=== PATIENT | female | born 1940 | race Asian ===

== ENCOUNTER 2016-12-13 10:02 | Inpatient (IN) | payer MEDICAID, MEDICARE ==
[~2016-12-13] VITALS: Ht 149.9 cm; Wt 67.0 kg
[~2016-12-13 10:02] MED LIST: METO-323 PO
[2016-12-13] MEDS ORDERED: HTN PO (10:08)
[2016-12-13 10:54] LABS: BASOPHILS # (AUTO) 0.01 K/uL (0.00-0.20); BASOPHILS % (AUTO) 0.2 % (0.0-2.0); EOSINOPHILS # (AUTO) 0.06 K/uL (0.00-0.70); EOSINOPHILS % (AUTO) 1.02 % (1.0-6.0); HEMATOCRIT 40.7 % (36-46); HEMOGLOBIN 13.5 g/dL (12.0-16.0); LYMPHOCYTES # (AUTO) 1.7 K/uL (1.0-4.8); LYMPHOCYTES % (AUTO) 28.5 % (22.0-44.0); MEAN CORPUSCULAR HEMOGLOBIN 29.3 pg (26.0-34.0); MEAN CORPUSCULAR HGB CONC 33.1 G/dL (31.0-37.0); MEAN CORPUSCULAR VOLUME 89 fL (80-100); MONOCYTES # (AUTO) 0.4 K/uL (0.1-1.0); MONOCYTES % (AUTO) 7.2 % (2.0-9.0); NEUTROPHILS # (AUTO) 3.7 K/uL (1.8-7.7); NEUTROPHILS % (AUTO) 63.1 % (40.0-70.0); PLATELET COUNT (AUTO) 223 K/uL (150-450); RED BLOOD CELL COUNT(AUTO) 4.59 MIL/uL (4.00-5.20); RED CELL DISTRIBUTION WIDTH 12.9 % (11.5-14.5); WHITE BLOOD COUNT (AUTO) 5.9 K/uL (4.5-11.0)
[2016-12-13 11:04] LABS: PROTHROMBIN TIME 10.4 SEC (9.4-11.6)
[2016-12-13 11:12] LABS: ANION GAP 6 mmol/L (8-16); CALCIUM, TOTAL 8.8 mg/dL (8.8-10.5); CARBON DIOXIDE 27 mmol/L (22-29); CHLORIDE 106 mmol/L (98-107); GLOMERULAR FILTR. RATE CALC > 60 mL/min (>60); POTASSIUM 4.2 mmol/L (3.5-5.1); SODIUM SERUM 139 mmol/L (136-145); UREA NITROGEN, BLOOD 18 mg/dL (7-18)
[2016-12-13 11:15] LABS: ALANINE AMINOTRANSFERASE 18 U/L (12-78); ALBUMIN 3.3 g/dL (3.4-5.0); ASPARTATE AMINOTRANSFERASE 15 U/L (15-37); BILIRUBIN,TOTAL 0.4 mg/dL (0.1-1.0); CREATINE KINASE, TOTAL 56 U/L (26-192); TOTAL PROTEIN, SERUM 7.3 g/dL (6.4-8.2)
[2016-12-13 11:19] LABS: B-TYPE NATRIURETIC PEPTIDE 150 pg/mL (0-100)
[2016-12-13] MEDS ORDERED: ASPIRIN 81 MG CHEWABLE TABLET PO ONE (13:15)
[2016-12-13] MEDS ORDERED: NITROGLYCERIN 2% (1 GM=INCH) PACKET TP ONE (13:15)
[2016-12-13 14:05] LABS: APPEARANCE,URINE CLEAR (CLEAR); GLUCOSE, URINE (UA) NEGATIVE (NEGATIVE); KETONES,URINE NEGATIVE (NEGATIVE); LEUKOCYTE ESTERASE ,URINE NEGATIVE (NEGATIVE); OCCULT BLOOD,URINE NEGATIVE (NEGATIVE); PROTEIN,URINE NEGATIVE (NEGATIVE)
[2016-12-13 14:07] LABS: ADD UA MICROSCOPIC NO
[2016-12-13] MEDS ORDERED: 0.9% SODIUM CHLORIDE 10 ML SYRINGE IVP PRN (15:00)
[2016-12-13] MEDS ORDERED: ACETAMINOPHEN 325 MG TABLET PO PRN (15:00)
[2016-12-13] MEDS ORDERED: ONDANSETRON HCL 4 MG/2 ML VIAL IVP PRN (15:00)
[2016-12-13 15:10] VITALS: BP 158/98
[2016-12-13] MEDS ORDERED: FAMO20 PO (16:33)
[2016-12-13] MEDS ORDERED: DONE5TAB PO (16:33)
[2016-12-13] MEDS ORDERED: ATOR40TA28 PO (16:33)
[2016-12-13] MEDS ORDERED: MELO-273 PO (16:33)
[2016-12-13] MEDS ORDERED: LORA0.5T2 PO (16:33)
[2016-12-13] MEDS ORDERED: AMLO-511 PO (16:33)
[2016-12-13] MEDS ORDERED: MELOXICAM 7.5 MG TABLET PO SCH (16:45)
[2016-12-13] MEDS: FAMOTIDINE 20 MG TABLET PO SCH (17:40)
[2016-12-13] MEDS: ATORVASTATIN CALCIUM 40 MG TABLET PO SCH (17:40)
[2016-12-13] MEDS: METOPROLOL SUCCINATE 50 MG ER TABLET PO SCH (17:40)
[2016-12-13] MEDS: AmLODIPine BESYLATE 5 MG TABLET PO SCH (17:40)
[2016-12-13] MEDS: DONEPEZIL HCL 5 MG TABLET PO SCH (17:41)
[2016-12-13 19:37] VITALS: BP 129/64
[2016-12-13] MEDS: LORazepam 0.5 MG TABLET PO SCH (19:56)
[2016-12-13] MEDS ORDERED: LORazepam 1 MG TABLET PO PRN (21:45)
[2016-12-13] MEDS ORDERED: MORPHINE SULFATE 2 MG/ML SYRINGE SQ PRN ×2 (21:45→22:00)
[2016-12-13] MEDS ORDERED: NITROGLYCERIN 2% (1 GM=INCH) PACKET TP PRN (21:45)
[2016-12-13] MEDS ORDERED: NITROGLYCERIN 0.4 MG SUBLINGUAL TABLET #25 SL PRN (21:45)
[2016-12-13] MEDS: ZOLPIDEM TARTRATE 10 MG TABLET PO PRN (22:17)
[2016-12-13 23:22] VITALS: BP 122/74
[2016-12-14 03:52] VITALS: BP 137/76
[2016-12-14 07:07] LABS: BASOPHILS # (AUTO) 0.01 K/uL (0.00-0.20); BASOPHILS % (AUTO) 0.1 % (0.0-2.0); EOSINOPHILS # (AUTO) 0.05 K/uL (0.00-0.70); HEMATOCRIT 41.8 % (36-46); HEMOGLOBIN 13.7 g/dL (12.0-16.0); LYMPHOCYTES # (AUTO) 1.5 K/uL (1.0-4.8); LYMPHOCYTES % (AUTO) 17.7 % (22.0-44.0); MEAN CORPUSCULAR HEMOGLOBIN 29.1 pg (26.0-34.0); MEAN CORPUSCULAR HGB CONC 32.9 G/dL (31.0-37.0); MEAN CORPUSCULAR VOLUME 88 fL (80-100); MONOCYTES # (AUTO) 0.7 K/uL (0.1-1.0); MONOCYTES % (AUTO) 7.8 % (2.0-9.0); NEUTROPHILS # (AUTO) 6.3 K/uL (1.8-7.7); NEUTROPHILS % (AUTO) 73.7 % (40.0-70.0); PLATELET COUNT (AUTO) 208 K/uL (150-450); RED BLOOD CELL COUNT(AUTO) 4.72 MIL/uL (4.00-5.20); RED CELL DISTRIBUTION WIDTH 13.6 % (11.5-14.5); WHITE BLOOD COUNT (AUTO) 8.5 K/uL (4.5-11.0)
[2016-12-14 07:27] LABS: ALANINE AMINOTRANSFERASE 21 U/L (12-78); ALBUMIN 3.1 g/dL (3.4-5.0); ANION GAP 7 mmol/L (8-16); ASPARTATE AMINOTRANSFERASE 16 U/L (15-37); BILIRUBIN,TOTAL 0.5 mg/dL (0.1-1.0); CALCIUM, TOTAL 8.7 mg/dL (8.8-10.5); CARBON DIOXIDE 28 mmol/L (22-29); CHLORIDE 105 mmol/L (98-107); CHOL/HDL RATIO 2.3 (3.9-5.7); CREATININE 0.83 mg/dL (0.60-1.30); GLOMERULAR FILTR. RATE CALC > 60 mL/min (>60); POTASSIUM 4.2 mmol/L (3.5-5.1); SODIUM SERUM 140 mmol/L (136-145); TOTAL PROTEIN, SERUM 7.1 g/dL (6.4-8.2); UREA NITROGEN, BLOOD 15 mg/dL (7-18)
[2016-12-14 07:46] VITALS: BP 133/69
[2016-12-14] MEDS: ATORVASTATIN CALCIUM 40 MG TABLET PO SCH (08:10)
[2016-12-14] MEDS: MELOXICAM 7.5 MG TABLET PO SCH (08:10)
[2016-12-14] MEDS: FAMOTIDINE 20 MG TABLET PO SCH (08:11)
[2016-12-14] MEDS: DONEPEZIL HCL 5 MG TABLET PO SCH (08:11)
[2016-12-14] MEDS: AmLODIPine BESYLATE 5 MG TABLET PO SCH (08:11)
[2016-12-14] MEDS: LORazepam 0.5 MG TABLET PO SCH ×2 (08:11→19:55)
[2016-12-14] MEDS: METOPROLOL SUCCINATE 50 MG ER TABLET PO SCH (08:11)
[2016-12-14 11:35] VITALS: BP 128/72
[2016-12-14 16:11] VITALS: BP 126/70
[2016-12-14 19:09] VITALS: BP 128/73
[2016-12-14 23:57] VITALS: BP 109/55
[2016-12-15 05:07] VITALS: BP 111/69
[2016-12-15] MEDS ORDERED: 0.9% SODIUM CHLORIDE 10 ML SYRINGE IVP PRN (06:45)
[2016-12-15 07:37] LABS: ANION GAP 9 mmol/L (8-16); CALCIUM, TOTAL 8.8 mg/dL (8.8-10.5); CARBON DIOXIDE 26 mmol/L (22-29); CHLORIDE 103 mmol/L (98-107); CREATINE KINASE MB 1.2 ng/mL (0-5); CREATINE KINASE, TOTAL 107 U/L (26-192); CREATININE 0.98 mg/dL (0.60-1.30); GLOMERULAR FILTR. RATE CALC 55 mL/min (>60); POTASSIUM 4.1 mmol/L (3.5-5.1); SODIUM SERUM 138 mmol/L (136-145); UREA NITROGEN, BLOOD 23 mg/dL (7-18)
[2016-12-15 07:40] VITALS: BP 100/62
[2016-12-15 07:50] LABS: B-TYPE NATRIURETIC PEPTIDE 139 pg/mL (0-100)
[2016-12-15] MEDS: MELOXICAM 7.5 MG TABLET PO SCH (08:00)
[2016-12-15] MEDS: ATORVASTATIN CALCIUM 40 MG TABLET PO SCH (09:00)
[2016-12-15] MEDS: DONEPEZIL HCL 5 MG TABLET PO SCH (09:00)
[2016-12-15] MEDS: AmLODIPine BESYLATE 5 MG TABLET PO SCH (09:00)
[2016-12-15] MEDS: LORazepam 0.5 MG TABLET PO SCH ×2 (09:00→21:08)
[2016-12-15] MEDS ORDERED: SESTAMIBI TC99M/UD ISOTOPE 1 EA INJ INJ ONE ×2 (10:15→13:50)
[2016-12-15 11:20] VITALS: BP 110/63
[2016-12-15 13:45] VITALS: BP 119/75
[2016-12-15 13:50] VITALS: BP 107/65
[2016-12-15 19:36] VITALS: BP 115/69
[2016-12-15] MEDS: FAMOTIDINE 20 MG TABLET PO SCH (21:08)
[2016-12-15] MEDS: METOPROLOL SUCCINATE 50 MG ER TABLET PO SCH (21:08)
[2016-12-16] VITALS (18 sets, daily range): BP systolic 107–152; BP diastolic 59–83
[2016-12-16 05:49] LABS: BASOPHILS # (AUTO) 0.02 K/uL (0.00-0.20); BASOPHILS % (AUTO) 0.3 % (0.0-2.0); EOSINOPHILS # (AUTO) 0.07 K/uL (0.00-0.70); EOSINOPHILS % (AUTO) 0.99 % (1.0-6.0); HEMOGLOBIN 12.8 g/dL (12.0-16.0); LYMPHOCYTES # (AUTO) 1.5 K/uL (1.0-4.8); LYMPHOCYTES % (AUTO) 20.9 % (22.0-44.0); MEAN CORPUSCULAR HEMOGLOBIN 29.1 pg (26.0-34.0); MEAN CORPUSCULAR HGB CONC 32.8 G/dL (31.0-37.0); MEAN CORPUSCULAR VOLUME 89 fL (80-100); MONOCYTES # (AUTO) 0.6 K/uL (0.1-1.0); MONOCYTES % (AUTO) 8.5 % (2.0-9.0); NEUTROPHILS % (AUTO) 69.3 % (40.0-70.0); PLATELET COUNT (AUTO) 200 K/uL (150-450); WHITE BLOOD COUNT (AUTO) 7.2 K/uL (4.5-11.0)
[2016-12-16 06:12] LABS: ANION GAP 10 mmol/L (8-16); CALCIUM, TOTAL 8.4 mg/dL (8.8-10.5); CARBON DIOXIDE 26 mmol/L (22-29); CHLORIDE 103 mmol/L (98-107); CREATININE 0.85 mg/dL (0.60-1.30); GLOMERULAR FILTR. RATE CALC > 60 mL/min (>60); POTASSIUM 3.7 mmol/L (3.5-5.1); SODIUM SERUM 139 mmol/L (136-145); UREA NITROGEN, BLOOD 18 mg/dL (7-18)
[2016-12-16] MEDS: LORazepam 0.5 MG TABLET PO SCH ×2 (09:00→20:14)
[2016-12-16] MEDS ORDERED: LIDOCAINE HCL/PF 1% 30 ML VIAL ONE (10:10)
[2016-12-16] MEDS ORDERED: SODIUM BICARBONATE 50 MEQ/50 ML VIAL ONE (10:10)
[2016-12-16] MEDS ORDERED: HEPARIN SODIUM 1000 UNITS/NS 1,000 ML ONE (10:11)
[2016-12-16] MEDS ORDERED: IOHEXOL 300 MG/ML 150 ML VIAL ONE (10:11)
[2016-12-16] MEDS ORDERED: MIDAZOLAM HCL 2 MG/2 ML VIAL ONE (10:38)
[2016-12-16] MEDS ORDERED: FentaNYL CITRATE-PF 100 MCG/2 ML VIAL ONE (10:38)
[2016-12-16] MEDS ORDERED: MIDAZOLAM HCL 2 MG/2 ML VIAL IVP ONE (10:45)
[2016-12-16] MEDS ORDERED: HEPARIN SODIUM 1000 UNITS/NS 1,000 ML IARTER ONE (10:45)
[2016-12-16] MEDS ORDERED: FentaNYL CITRATE-PF 100 MCG/2 ML VIAL IVP ONE (10:45)
[2016-12-16] MEDS ORDERED: IOHEXOL 300 MG/ML 150 ML VIAL IARTER ONE (10:45)
[2016-12-16] MEDS ORDERED: SODIUM CHLORIDE 0.9% 500 ML IV ONE (10:45)
[2016-12-16] MEDS ORDERED: LIDOCAINE 1% 30 ML/SOD BICARB 8.4% 4 ML SQ ONE (10:45)
[2016-12-16] MEDS ORDERED: IOHEXOL 300 MG/ML 50 ML VIAL ONE (11:06)
[2016-12-16] MEDS: AmLODIPine BESYLATE 5 MG TABLET PO SCH ×2 (12:12→12:16)
[2016-12-16] MEDS: MELOXICAM 7.5 MG TABLET PO SCH (12:12)
[2016-12-16] MEDS: ATORVASTATIN CALCIUM 40 MG TABLET PO SCH (12:13)
[2016-12-16] MEDS: DONEPEZIL HCL 5 MG TABLET PO SCH (12:13)
[2016-12-16] MEDS: METOPROLOL SUCCINATE 50 MG ER TABLET PO SCH (12:13)
[2016-12-16] MEDS: FAMOTIDINE 20 MG TABLET PO SCH (12:13)
[2016-12-16] MEDS: ZOLPIDEM TARTRATE 10 MG TABLET PO PRN (21:44)
[2016-12-17 04:45] VITALS: BP 114/64
[2016-12-17 08:00] VITALS: BP 126/78
[2016-12-17] MEDS: MELOXICAM 7.5 MG TABLET PO SCH (08:51)
[2016-12-17] MEDS: LORazepam 0.5 MG TABLET PO SCH (08:52)
[2016-12-17] MEDS: ATORVASTATIN CALCIUM 40 MG TABLET PO SCH (08:52)
[2016-12-17] MEDS: DONEPEZIL HCL 5 MG TABLET PO SCH (08:52)
[2016-12-17] MEDS: AmLODIPine BESYLATE 5 MG TABLET PO SCH (08:53)
[2016-12-17] MEDS: FAMOTIDINE 20 MG TABLET PO SCH (08:53)
[2016-12-17] MEDS: METOPROLOL SUCCINATE 50 MG ER TABLET PO SCH (08:54)
[2016-12-17 11:50] VITALS: BP 127/78
[2016-12-17 16:14] VITALS: BP 138/73
[2016-12-17] MEDS ORDERED: REGADENOSON 0.4 MG/5 ML PF SYRINGE IVP ONE (20:09)
== END 2016-12-17 20:10 | disposition home or self-care (01) | DRG 206 ==
LOC: EMS 10:03 → 5N 14:45 → 5S 12-17 05:52
PROVIDERS: ADMIT Internal Medicine; ATTEND Internal Medicine
PROC: 4A023N7 Measurement of Cardiac Sampling and Pressure, Left Heart, Percutaneous Approach (ICD-10-PCS; principal; 2016-12-16)
PROC: B2111ZZ Fluoroscopy of Multiple Coronary Arteries using Low Osmolar Contrast (ICD-10-PCS; 2016-12-16)
PROC: B2151ZZ Fluoroscopy of Left Heart using Low Osmolar Contrast (ICD-10-PCS; 2016-12-16)
PROC: B3101ZZ Fluoroscopy of Thoracic Aorta using Low Osmolar Contrast (ICD-10-PCS; 2016-12-16)
PROC: B2131ZZ Fluoroscopy of Multiple Coronary Artery Bypass Grafts using Low Osmolar Contrast (ICD-10-PCS; 2016-12-16)
DX: M94.0 Chondrocostal junction syndrome [Tietze] (principal); E44.0 Moderate protein-calorie malnutrition; I25.10 Atherosclerotic heart disease of native coronary artery without angina pectoris; I35.1 Nonrheumatic aortic (valve) insufficiency; I10 Essential (primary) hypertension; E78.00 Pure hypercholesterolemia, unspecified; Z68.29 Body mass index [BMI] 29.0-29.9, adult; Z79.899 Other long term (current) drug therapy; Z95.1 Presence of aortocoronary bypass graft
CPT/HCPCS: 78452; 83735; 87081; 93005; 93017; 93306; 93459; 93567; 99285; A9500; J1644; J2250; J2785; J3010; J3490; Q9967